=== PATIENT | female | born 1955 | race Caucasian/White ===

== ENCOUNTER 2017-01-19 22:37 | Emergency (ER) | payer BC ==
--- NOTE | ~2017-01-19 | ER ---
PATIENT'S NAME: JAROD QUEEN [facility] AGE: 61 Y [address] ROOM: [place] [id number] LOCATION: [facility] ADMIT DATE: 01/19/2017 ER/Outpatient Report DISCHARGE DATE: 01/19/2017 FAMILY PHYSICIAN: Urvashi Lozoya MD ATTENDING PHYSICIAN: Johana Nelson HISTORY OF PRESENT ILLNESS: A 61-year-old female, who presents today with chief complaint of a tick bite to her right lower abdomen. She says that it has been there since she went [employer] this afternoon, so at 4 or 5 hours. She says that she tried to remove it. They were able to remove the body, but the head is still in there. She was not sure about what to do. So, they had called a doctor that they knew, he told them to go to the ER. The patient denies any fever or chills, any other complaints at this time. No neuro symptoms. PAST MEDICAL HISTORY: Hypertension, seasonal allergies. SURGICAL HISTORY: x3, cholecystectomy, appendectomy, vein stripping, hysterectomy, and breast augmentation. SOCIAL HISTORY: She does not smoke or use any drugs. Occasional alcohol. MEDICATIONS: Please see med list. ALLERGIES: SULFA, WHICH CAUSES HIVES. REVIEW OF SYSTEMS: Reviewed by me and negative with the exception of those discussed in HPI. PHYSICAL EXAMINATION: VITAL SIGNS: The patient is 5 feet 7 inch, she weighed 74.5 kilos, blood pressure 173/85, heart rate 75, respiratory rate 18, temperature is 97.1, and saturations are 99% on room air. GENERAL: The patient is very pleasant. She is in no acute distress at this time. A and O x4. Moves all extremities. GCS is 15. Strength bilateral upper extremities 5/5 and lower extremities 5/5. Intact grasp strength bilaterally. No pronator drift. ABDOMEN: There is a small tick that is wedged into her right lower abdomen. There is no surrounding erythema. There is no rash, otherwise. There is no evidence of cellulitis either, otherwise, soft, nontender, and nondistended. PATIENT'S NAME: JAROD QUEEN [facility] AGE: 61 Y [address] ROOM: [place] [id number] LOCATION: [facility] ADMIT DATE: 01/19/2017 ER/Outpatient Report DISCHARGE DATE: 01/19/2017 FAMILY PHYSICIAN: Urvashi Lozoya MD ATTENDING PHYSICIAN: Johana Nelson ER COURSE: The tick was removed using a clamp here, removed without any difficulty. I do not see anything else in the wound. I discussed this with the patient. She feels comfortable going home. She is not a candidate for doxy prophylaxis as this is not a highly endemic area. The tick has not been attached for more than 36 hours. She understands this and will follow up appropriately. IMPRESSION: Tick bite. MD KEYANA BONNER/patty /[id number] d: 01/20/17824 t: 02/18/17 1101, OUTPATIENT REPORT
== END 2017-01-19 22:57 | disposition disaster alternative care site (69) ==
LOC: GACC 22:37 → GMED 22:37 → GACC 22:57
DX: S30.861A Insect bite (nonvenomous) of abdominal wall, initial encounter (principal); I10 Essential (primary) hypertension; Z90.49 Acquired absence of other specified parts of digestive tract; Z90.710 Acquired absence of both cervix and uterus; Z98.890 Other specified postprocedural states; Z88.2 Allergy status to sulfonamides; Z79.899 Other long term (current) drug therapy; W57.XXXA Bitten or stung by nonvenomous insect and other nonvenomous arthropods, initial encounter; Y93.53 Activity, golf; Y92.39 Other specified sports and athletic area as the place of occurrence of the external cause